=== PATIENT | female | born 1975 | race African-American/Black ===

== ENCOUNTER 2017-07-17 08:36 | Emergency (ER) | payer OTHER ==
[2017-07-17 08:41] VITALS: BMI 27.0
--- NOTE | 2017-07-17 11:47 | PDOC ---
History of Present Illness - General History Source: Patient Exam Limitations: No Limitations - History of Present Illness Initial Comments: 07/17/17 12:51 Patient is a 42 year old female with no significant past medical history who presents to the ED with complaints of left sided back pain that began this morning. Patient reports lifting her son up this morning off of his car seat when she began to experiencing sudden left back pain. Patient reports left sided back pain radiates to her left shoulder and left chest. She reports experiencing increased pain with deep inspiration. Patient states she did fall yesterday while at home, stating she slipped on a blanket and fell on her right side, but was able to stand and walk immediately after. Denies sob. Denies nausea, vomiting. Denies fevers, chills. Denies any other symptoms. Allergies: None Social history: Lives with child. No smoking. No alcohol. No illicit drugs. Surgical history: Breast implants. PMD: Dr. Schaeffer <Raymond Whalen - Last Filed: 07/17/17 12:50> <Candice Major - Last Filed: 07/17/17 18:14> - General Chief Complaint: Pain Stated Complaint: LEFT SIDE PAIN Time Seen by Provider: 07/17/17 11:40 Past History <Raymond Whalen - Last Filed: 07/17/17 12:50> - Past Medical History Asthma: No Cancer: No Cardiac Disorders: No CVA: No COPD: No DVT: No Diabetes: No HTN: No Seizures: No Thyroid Disease: No - Suicide/Smoking/Psychosocial Hx Smoking History: Never smoked Have you smoked in the past 12 months: No Hx Alcohol Use: No Drug/Substance Use Hx: No Substance Use Type: None Hx Substance Use Treatment: No <Candice Major - Last Filed: 07/17/17 18:14> - Past Medical History Allergies/Adverse Reactions: Allergies Allergy/AdvReac Type Severity Reaction Status Date / Time No Known Allergies Allergy Verified 07/17/17 08:41 Home Medications: Ambulatory Orders NK [No Known Home Medication] 02/28/15 Review of Systems - Review of Systems Able to Perform ROS?: Yes Comments:: 07/17/17 12:51 GENERAL/CONSTITUTIONAL: No fever or chills. No weakness. HEAD, EYES, EARS, NOSE AND THROAT: No change in vision. No ear pain or discharge. No sore throat. GASTROINTESTINAL: No nausea, vomiting, diarrhea or constipation. GENITOURINARY: No dysuria, frequency, or change in urination. CARDIOVASCULAR: +Left sided chest pain. No shortness of breath. RESPIRATORY: No cough, wheezing, or hemoptysis. MUSCULOSKELETAL: +Left sided back pain. +Left sided shoulder pain. No joint or muscle swelling or pain. No neck or back pain. SKIN: No rash NEUROLOGIC: No headache, vertigo, loss of consciousness, or change in strength/ sensation. ENDOCRINE: No increased thirst. No abnormal weight change. HEMATOLOGIC/LYMPHATIC: No anemia, easy bleeding, or history of blood clots. ALLERGIC/IMMUNOLOGIC: No hives or skin allergy. <Raymond Whalen - Last Filed: 07/17/17 12:50> *Physical Exam - Vital Signs Last Vital Signs Temp Pulse Resp BP Pulse Ox 98.6 F 64 20 116/69 100 07/17/17 08:38 07/17/17 08:38 07/17/17 08:38 07/17/17 08:38 07/17/17 08:38 <Raymond Whalen - Last Filed: 07/17/17 12:50> - Vital Signs Last Vital Signs Temp Pulse Resp BP Pulse Ox 98.6 F 64 20 116/69 100 07/17/17 08:38 07/17/17 08:38 07/17/17 08:38 07/17/17 08:38 07/17/17 08:38 - Physical Exam Comments: GENERAL: Awake, alert, and fully oriented, in no acute distress. Seated, leaning slightly to R and avoiding movements of the torso. HEAD: No signs of trauma EYES: PERRLA, EOMI, sclera anicteric, conjunctiva clear ENT: Auricles normal inspection, hearing grossly normal, nares patent, oropharynx clear without exudates. Moist mucosa NECK: Normal ROM, supple, no lymphadenopathy, JVD, or masses LUNGS: Breath sounds equal, clear to auscultation bilaterally. No wheezes, and no crackles. Pain not reproducible on exam. HEART: Regular rate and rhythm, normal S1 and S2, no murmurs, rubs or gallops ABDOMEN: Soft, nontender, normoactive bowel sounds. No guarding, no rebound. No masses EXTREMITIES: Normal range of motion, no edema. No clubbing or cyanosis. No cords, erythema, or tenderness NEUROLOGICAL: Cranial nerves II through XII grossly intact. Normal speech, normal gait SKIN: Warm, Dry, normal turgor, no rashes or lesions noted. <Candice Major - Last Filed: 07/17/17 18:14> ED Treatment Course - ADDITIONAL ORDERS Additional order review: Laboratory Results 07/17/17 12:05 Urine HCG, Qual Negative <Raymond Whalen - Last Filed: 07/17/17 12:50> Medical Decision Making - Medical Decision Making No acute findings on XR. Pain is positional, improves with leaning to R side. It occurred as she lifted her son from car seat, implying musculoskeletal injury. She declined any medication for pain. I recommended warm compresses, possibly Icy-Hot patch or Salon Pas, or something similar as a local analgesic. <Candice Major - Last Filed: 07/17/17 18:14> *DC/Admit/Observation/Transfer - Attestations Scribe Attestion: 07/17/17 12:51 Documentation prepared by Raymond Whalen, acting as medical receptionist for Candice Major MD, /DO. <Raymond Whalen - Last Filed: 07/17/17 12:50> - Discharge Dispostion Admit: No <Candice Major - Last Filed: 07/17/17 18:14> Diagnosis at time of Disposition: Atypical chest pain, Muscle strain - Discharge Dispostion Disposition: HOME Condition at time of disposition: Stable - Referrals Referrals: Pancho Schaeffer [Primary Care Provider] - - Patient Instructions Printed Discharge Instructions: DI for Atypical Chest Pain, DI for Muscle Strain - Post Discharge Activity
[2017-07-17 14:03] VITALS: BP 112/72; PULSE 68; TEMP 98.1
--- NOTE | 2017-07-17 15:23 | EKG ---
Test Reason : Blood Pressure : / mmHG Vent. Rate : 066 BPM Atrial Rate : 066 BPM P-R Int : 144 ms QRS Dur : 080 ms QT Int : 386 ms P-R-T Axes : 066 001 018 degrees QTc Int : 404 ms NORMAL SINUS RHYTHM WITH SINUS ARRHYTHMIA POSSIBLE LEFT ATRIAL ENLARGEMENT CANNOT RULE OUT ANTERIOR INFARCT (CITED ON OR BEFORE 17-JUL-2017) ABNORMAL ECG WHEN COMPARED WITH ECG OF 05-JAN-2014 08:50, NO SIGNIFICANT CHANGE WAS FOUND Confirmed by RAN CHE MD ([id number]) on 07/17/2017 3:23:07 PM Referred By: Confirmed By:RAN CHE MD
== END 2017-07-17 14:10 | disposition home or self-care (01) ==
LOC: JER 08:36
DX: S29.012A Strain of muscle and tendon of back wall of thorax, initial encounter (principal); X50.0XXA Overexertion from strenuous movement or load, initial encounter; Y93.F2 Activity, caregiving, lifting; Y92.89 Other specified places as the place of occurrence of the external cause; Y99.8 Other external cause status
CPT/HCPCS: 71046-TC; 71101-TC; 84703; 93005; 93010; 99282-25

== ENCOUNTER 2018-08-16 20:33 | Emergency (ER) | payer OTHER ==
[2018-08-16 20:49] VITALS: BMI 29.0
--- NOTE | 2018-08-16 22:02 | PDOC ---
History of Present Illness - General Chief Complaint: Pain Stated Complaint: L arm pain History Source: Patient Exam Limitations: No Limitations - History of Present Illness Initial Comments: 08/16/18 21:54 Patient is a 43-year-old female with no past medical history c/o left shoulder pain since this p.m. Patient states she was in her usual states of health until this pm when she was going to going shopping and while driving she noticed she had pain to the left shoulder especially with movement. Patient states the pain is to the anterior surface of the deltoid area described as a soreness, which is 7/10 and worse with movement. She took nothing for the pain. Patient denies any injury, chest pain, dizziness, SOB. Family history negative for SC/CVA/DVT/PE. Patient expresses concern that she might be having a heart attack. PMD: Dr. Schaeffer PMHX: neg PSOCHX: neg etoh, cig, drug ALL: NKDA GENERAL/CONSTITUTIONAL: [No fever or chills. No weakness. No weight change.] HEAD, EYES, EARS, NOSE AND THROAT: [No change in vision. No ear pain or discharge. No sore throat.] CARDIOVASCULAR: [No chest pain or shortness of breath.] RESPIRATORY: [No cough, wheezing, or hemoptysis.] GASTROINTESTINAL: [No nausea, vomiting, diarrhea or constipation. No rectal bleeding.] GENITOURINARY: [No dysuria, frequency, or change in urination.] MUSCULOSKELETAL: [No joint or muscle swelling or pain. No neck or back pain.] SKIN AND BREASTS: [No rash or easy bruising.] NEUROLOGIC: [No headache, vertigo, loss of consciousness, or loss of sensation.] PSYCHIATRIC: [No depression or anxiety.] ENDOCRINE: [No increased thirst. No abnormal weight change.] HEMATOLOGIC/LYMPHATIC: [No anemia, easy bleeding, or history of blood clots.] ALLERGIC/IMMUNOLOGIC: [No hives or skin allergy. No latex allergy.] GENERAL: [The patient is awake, alert, and fully oriented, in no acute distress. ] HEAD: [Normal with no signs of trauma.] EYES: [Pupils equal, round and reactive to light, extraocular movements intact, sclera anicteric, conjunctiva clear.] ENT: [Ears normal, nares patent, oropharynx clear without exudates. Moist mucous membranes.] NECK: [Normal range of motion, supple without lymphadenopathy, JVD, or masses.] LUNGS: [Breath sounds equal, clear to auscultation bilaterally. No wheezes, and no crackles.] HEART: [Regular rate and rhythm, normal S1 and S2 without murmur, rub.] ABDOMEN: [Soft, nontender, normoactive bowel sounds. No guarding, no rebound. No masses.] EXTREMITIES: [decreased range of motion to the left shoulder, (+) tendernss posterior, no edema. No clubbing or cyanosis. No cords, erythema, or tenderness.] NEUROLOGICAL: [Cranial nerves II through XII grossly intact. 5/5 strength all extemities, no facial asymetry, Normal speech, normal gait.] PSYCH: [Normal mood, normal affect.] SKIN: [Warm, Dry, normal turgor, no rashes or lesions noted.] Past History - Past Medical History Allergies/Adverse Reactions: Allergies Allergy/AdvReac Type Severity Reaction Status Date / Time No Known Allergies Allergy Verified 08/16/18 20:49 Home Medications: Ambulatory Orders NK [No Known Home Medication] 02/28/15 Asthma: No Cancer: No Cardiac Disorders: No CVA: No COPD: No DVT: No Diabetes: No HTN: No Seizures: No Thyroid Disease: No - Suicide/Smoking/Psychosocial Hx Smoking History: Never smoked Have you smoked in the past 12 months: No Information on smoking cessation initiated: No Hx Alcohol Use: No Drug/Substance Use Hx: No Substance Use Type: None Hx Substance Use Treatment: No *Physical Exam - Vital Signs Last Vital Signs Temp Pulse Resp BP Pulse Ox 98.6 F 72 16 102/74 100 08/16/18 20:47 08/16/18 20:47 08/16/18 20:47 08/16/18 20:47 08/16/18 20:47 Moderate Sedation - Procedure Monitoring Vital Signs: Procedure Monitoring Vital Signs Temperature 98.6 F 08/16/18 20:47 Pulse Rate 72 08/16/18 20:47 Respiratory Rate 16 08/16/18 20:47 Blood Pressure 102/74 08/16/18 20:47 O2 Sat by Pulse Oximetry (%) 100 08/16/18 20:47 ED Treatment Course - RADIOLOGY Radiology Studies Ordered: Category Date Time Status SHOULDER-LEFT [RAD] Stat Radiology 08/16/18 21:52 Ordered Medical Decision Making - Medical Decision Making 08/16/18 21:54 Patient is a 43-year-old female with no past medical history c/o left shoulder pain since this p.m. Patient states she was in her usual states of health until this pm when she was going to going shopping and while driving she noticed she had pain to the left shoulder especially with movement. Patient states the pain is to the anterior surface of the deltoid area described as a soreness, which is 7/10 and worse with movement. She took nothing for the pain. Patient denies any injury, chest pain, dizziness, SOB. Family history negative for SC/CVA/DVT/PE. Concerned that she may be having a heart attack. Pain meds offered but patient refused. Symptoms are consistent with a musculoskeletal pain, EKG and x-ray of the left shoulder. Troponin EKG: R 69, NAD, no ST-T wave changes Shoulder x-ray no acute findings Laboratory Tests 08/16/18 22:58 Creatine Kinase 93 Troponin I < 0.02 I discussed the physical exam findings, ancillary test results and final diagnoses with the patient. I answered all of the patient's questions. The patient was satisfied with the care received and felt comfortable with the discharge plan and treatment plan. The Patient agrees to follow up with the primary care physician within 24-72 hours. *DC/Admit/Observation/Transfer Diagnosis at time of Disposition: Shoulder pain Qualifiers: Chronicity: acute Laterality: left Qualified Code(s): M25.512 - Pain in left shoulder - Discharge Dispostion Disposition: HOME Condition at time of disposition: Stable - Referrals Referrals: Pancho Schaeffer [Primary Care Provider] - Rajendra Novak MD [Staff Physician] - - Patient Instructions Printed Discharge Instructions: DI for Shoulder Pain Additional Instructions: Your Discharge Instructions: You must call primary care physician within 24 hours to arrange follow-up. Return to the Emergency Department with any new, persistent or worsening symptoms, for fever, chills, SOB, dizziness or any other concerning changes that may occur. Take Tylenol or Motrin for pain. Follow-up with orthopedist if the pain persist. - Post Discharge Activity
[2018-08-17 00:08] VITALS: BP 104/66; PULSE 81; TEMP 97.8
--- NOTE | 2018-08-17 12:47 | EKG ---
Test Reason : Blood Pressure : / mmHG Vent. Rate : 069 BPM Atrial Rate : 069 BPM P-R Int : 142 ms QRS Dur : 080 ms QT Int : 374 ms P-R-T Axes : 061 023 034 degrees QTc Int : 400 ms NORMAL SINUS RHYTHM POSSIBLE LEFT ATRIAL ENLARGEMENT WHEN COMPARED WITH ECG OF 17-JUL-2017 14:01, NO SIGNIFICANT CHANGE WAS FOUND Confirmed by MICHAEL PARADA MD ([id number]) on 08/17/2018 12:47:34 PM Referred By: Confirmed By:MICHAEL PARADA MD
== END 2018-08-16 23:45 | disposition home or self-care (01) ==
LOC: JERFT 20:33 → JER 20:33
DX: M25.512 Pain in left shoulder (principal)
CPT/HCPCS: 36415; 73030-TC-LT-FY; 82550; 84484; 93005; 93010; 99282-25